=== PATIENT | male | born 1985 | race Caucasian/White ===

== ENCOUNTER → 2021-07-21 12:23 | Outpatient (BNVA) | payer OTHER, SELFPAY | PROVIDERS: Visit Provider Emergency Medicine | DX: J02.9 Acute pharyngitis, unspecified (principal); T14.8XXA Other injury of unspecified body region, initial encounter; W57.XXXA Bitten or stung by nonvenomous insect and other nonvenomous arthropods, initial encounter | CPT/HCPCS: 86618; 86666; 86757; 87071; 87880 ==

== ENCOUNTER → 2021-08-21 16:20 | Outpatient (BNVA) | payer OTHER, SELFPAY | PROVIDERS: Visit Provider Emergency Medicine | DX: M10.9 Gout, unspecified (principal); M25.50 Pain in unspecified joint | CPT/HCPCS: 80048; 84550 ==